=== PATIENT | male | born 1995 | race Two or more races ===

== ENCOUNTER 2024-06-16 11:18 | Emergency (ER) | payer SELFPAY ==
[~2024-06-16] VITALS: Ht 172.7 cm; Wt 97.5 kg
[2024-06-16 11:49] LABS: BASOPHILS % (AUTO) 0.6 % (0-1); EOSINOPHILS # (AUTO) 0.2 X10'3 (0-0.9); EOSINOPHILS % (AUTO) 3.6 % (0-6); HEMATOCRIT 45.3 % (42.0-52.0); HEMOGLOBIN 14.7 g/dl (14.0-17.9); LYMPHOCYTES # (AUTO) 1.9 X10'3 (1.1-4.8); LYMPHOCYTES % (AUTO) 30.5 % (21-51); MEAN CORPUSCULAR HEMOGLOBIN 29.7 PG (27.0-31.0); MEAN CORPUSCULAR HGB CONC 32.5 g/dL (33.0-36.5); MEAN CORPUSCULAR VOLUME 91.2 FL (78-98); MONOCYTES # (AUTO) 0.7 X10'3 (0-0.9); NEUTROPHILS # (AUTO) 3.4 X10'3 (1.8-7.7); NEUTROPHILS % (AUTO) 54.3 % (42-75); PLATELET COUNT 137 X10'3 (140-440); RED BLOOD COUNT 4.96 X10'6 (4.70-6.10); RED CELL DISTRIBUTION WIDTH 13.5 % (11.5-14.5); WHITE BLOOD COUNT 6.2 X10'3 (4.5-11.0)
[2024-06-16 12:09] LABS: PLATELET ESTIMATE DECREASED
[2024-06-16 12:10] LABS: LARGE PLATELETS FEW
[2024-06-16 12:16] LABS: ALANINE AMINOTRANSFERASE 35 U/L (12-78); ALBUMIN 3.9 G/DL (3.4-5.0); ALBUMIN/GLOBULIN RATIO 0.8 (1.1-1.5); ALKALINE PHOSPHATASE 109 IU/L (46-116); ANION GAP 7 (8-16); ASPARTATE AMINO TRANSFERASE 19 U/L (10-37); BILIRUBIN,TOTAL 0.4 MG/DL (0.1-1.0); BLOOD UREA NITROGEN 12 MG/DL (7-18); BUN/CREATININE RATIO 14.6 (10.0-20.0); CALCIUM 8.9 MG/DL (8.5-10.1); CHLORIDE 104 MMOL/L (99-107); CREATININE 0.82 MG/DL (0.60-1.10); GLUCOSE 96 MG/DL (70-104); POTASSIUM 3.9 MMOL/L (3.5-5.1); SODIUM 139 MMOL/L (135-145); TOTAL CARBON DIOXIDE 28.2 MMOL/L (24-32); TOTAL PROTEIN 8.5 G/DL (6.4-8.2); eCRCL 126 ML/MIN; eGFR > 90 ML/MIN
[2024-06-16 12:24] LABS: PRO BRAIN NATRIURETIC PEPTIDE 38 PG/ML (0-125)
[2024-06-16] MEDS ORDERED: HYDR-3686 PO (14:24)
[2024-06-16 14:38] VITALS: BP 111/76; PULSE 62; RESP 19; TEMP 98.1; O2SAT 97
== END 2024-06-16 14:35 | disposition home or self-care (01) ==
LOC: ER 11:19
DX: F43.9 Reaction to severe stress, unspecified (principal); R07.9 Chest pain, unspecified; R42 Dizziness and giddiness
CPT/HCPCS: 36415; 71045; 80053; 83880; 84484; 85008; 85025; 93005; 99285

== ENCOUNTER 2024-10-16 08:41 | Emergency (ER) | payer MEDICAID ==
[~2024-10-16] VITALS: Ht 182.9 cm; Wt 97.7 kg
--- NOTE | 2024-10-16 09:16 | Physician Documentation ---
History of Present Illness Chief Complaint: Flank Pain Stated Complaint: LOWER LEFT BACK PAIN Time Seen by MD: 08:44 HPI 29-year-old male presents to the ED after having sudden right lumbar and flank pain yesterday. Denies any history of kidney stones denies any exacerbating injury. reports difficulty urinating this morning Medication Reconciliation Allergies: Coded Allergies: No Known Allergies (Unverified , 10/16/24) Physical Exam Vital Signs: Temperature: 98.4, Source: Temporal, Heart Rate: 71, Respiratory Rate: 18, BP: 128/88, Pulse Oximetry: 99, Weight: 97.730 Oxygen Flow Rate: 0 Physical Exam General: Alert, no apparent distress. HEENT: PERRL, EOMI, no injection, moist mucous membranes. Gastrointestinal: Soft, nontender, nondistended. Bowels sounds present. Positive CVA tenderness right side Extremities: Normal range of motion, no deformity. Neurologic: Oriented x4. Psychiatric: Normal mood and affect. Skin: Normal color, warm and dry. No edema, no ecchymosis. Progress Results/Orders Results/Orders Orders - ALBARO RIVERA [employer] DEVELOPER Urinalysis (10/16/24 09:06) Ct Abdomen Pelvis (10/16/24 09:09) Completed Orders - ALBARO RIVERA [employer] DEVELOPER Ketorolac Trometh 30mg/Ml Vial (Toradol (10/16/24 09:10) Ondansetron Inj. (Zofran 4mg/2ml Vial) (10/16/24 09:10) Normal Saline 1000ml (0.9% Sodium Chlori (10/16/24 09:10) Morphine 4mg/Ml Inj. (Morphine Inj.) (10/16/24 09:10) Vital Signs 10/16/24 08:42 Temp 98.4 Pulse 71 Resp 18 B/P (MAP) 128/88 Pulse Ox 99 O2 Flow Rate 0 Medical Decision Making Findings CT did not indicate any signs of obstructing kidney stones. May have passed the stone after receiving medication indicating that renal colic was likely the cause of his flank pain and nausea. He now reports overall improved pain. Differential Dx:Considerations: Include: AAA, Angina/TN, Aortic dissection, Appendicitis, Bowel obstruction, Cholangitis, Cholelithasis, Constipation, Diverticular disease, Esophageal rupture, Esophagitis, Gastritis/PUD, Gastroenteritis, GI hemorrhage, Hernia, Hepatitis, Inflammatory BD, Ischemic bowel, Pancreatitis, Porphyria, Testicular torsion, Trauma, intraabdominal, Urinary obstruction, Urinary tract infection, Urolithiasis, Other Departure Disposition: 01 HOME / SELF CARE / HOMELESS Impression: Primary Impression: Low back pain Additional Impression: Renal colic Condition: Improved Discharge Instructions: Renal Colic Referrals: NO PRIMARY CARE PROVIDER (PCP) Prescriptions Naproxen (Naproxen) 500 Mg Tablet 1 TAB PO Q12H, #20 TAB Prov: ALBARO RIVERA [employer] DEVELOPER 10/16/24 Signature Scribe Signature: [email or web address] Attestation: Scribed for Albaro Rivera Enamel Applier by Albaro Tariq NP . 10/16/24 10:18 ALBARO RIVERA NP Oct 16, 2024 09:16
[2024-10-16 09:43] VITALS: TEMP 98.1
--- NOTE | 2024-10-16 09:55 | RADIOLOGY REPORT ---
Exam: CT CT ABDOMEN PELVIS History: kidney stone Comparison Study: None Technique: Multidetector spiral CT of the abdomen was performed from lung bases to pubic symphysis. Imaging was performed without IV contrast. Axial, coronal and sagittal multiplanar reformats were ob tained from the axial data set by the technologist. Radiation Dose : 1. Abdomen/Pelvis: CTDIvol 34 mGy, DLP 2025 mGy*cm. Findings: Evaluation of solid organs is limited due to lack of intravenous contrast use. Lung Bases: No acute or significant lung base finding. Normal heart size. No pleural or pericardial effusion. Liver: The liver is normal in size. No focal lesions. Gallbladder and Biliary Tree: Unremarkable Spleen: Unremarkable Pancreas: The pancreas is grossly normal in appearance. Adrenal Glands: Unremarkable Kidneys: 1 mm left nonobstructing renal calculus. Bladder: Grossly unremarkable for degree of distention. Bowel: The stomach is grossly normal in appearance. Small bowel and colon are normal in caliber and d istribution. Normal appendix Ascites: Absent Lymphadenopathy: No mesenteric, retroperitoneal or periportal lymphadenopathy. Abdominal Wall and Mesentery: Unremarkable. Vasculature: The visualized abdominal aorta is normal in size and caliber. Evaluation of abdominal a nd pelvic vessels is limited due to lack of intravenous contrast. Pelvic Organs: Unremarkable Musculoskeletal: No aggressive focal bony lesions, acute fractures or dislocation. IMPRESSION: 1. 1 mm left renal nonobstructing calculus. No bladder stones. No hydronephrosis. Normal appendix Radiation optimization: All CT scans at this facility use at least one of these dose optimization crystal hniques: automated exposure control mA and/or kV adjustment per patient size (includes targeted exam s where dose is matched to clinical indication) or iterative reconstruction.
[2024-10-16] MEDS: ketorolac trometh 30MG/ML vial 30 MG/ML VIAL IV ONE (09:57)
[2024-10-16] MEDS: normal saline 1000ML IV soln IVB ONE (09:57)
[2024-10-16] MEDS: ondansetron/PF 4mg/2ml inj IV ONE (09:57)
[2024-10-16] MEDS: morphine 4 MG/ML inj SYRINge IV ONE (09:58)
[2024-10-16 10:06] LABS: LEUKOCYTE ESTERASE ,URINE NEGATIVE (Neg); NITRITES, URINE NEGATIVE (Neg); OCCULT BLOOD,URINE SMALL (Neg)
[2024-10-16 10:07] LABS: UA COLLECTION TYPE CLN CATCH MIDSTREAM
[2024-10-16 10:08] LABS: MEAN PLATELET VOLUME 11.5 FL (7.4-10.4); RED CELL DISTRIBUTION WIDTH 13.6 % (11.5-14.5)
[2024-10-16 10:14] LABS: MUCUS STRANDS FEW /LPF (Neg); SQUAMOUS EPITHELIAL CELL,UR NONE SEEN /LPF (FEW)
[2024-10-16] MEDS ORDERED: NAPR-56 PO (10:17)
[2024-10-16 10:24] LABS: CREATININE 1.08 MG/DL (0.60-1.10); TOTAL CARBON DIOXIDE 24.9 MMOL/L (24-32); eCRCL 109 ML/MIN; eGFR 80 ML/MIN
[2024-10-16 10:38] VITALS: BP 102/69; PULSE 88; O2SAT 99
[2024-10-16 10:41] VITALS: RESP 15
== END 2024-10-16 10:37 | disposition home or self-care (01) ==
LOC: ER 08:41
DX: N23 Unspecified renal colic (principal); M54.50 Low back pain, unspecified
CPT/HCPCS: 74176; 80053; 81001; 83690; 85025; 96361; 96374; 96375; 99285; J1885; J2270; J2405; J7030